=== PATIENT | female | born 1985 | race African-American/Black ===

== ENCOUNTER 2017-09-06 14:54 | Emergency (ER) | payer OTHER ==
[~2017-09-06] VITALS: Ht 157.5 cm; Wt 61.1 kg
[~2017-09-06 14:54] MED LIST: ACYCLOVIR400 MG PO; AUGMENTIN875 MG PO; NEURONTIN300 MG PO; PERCOCET 5/31 TABLET PO
[2017-09-06 16:22] LABS: HEMATOCRIT 39.4 % (36.0-46.0); MCH 30.7 PG (29.0-34.0); MCV 90.2 FL (83-99); MEAN PLAT.VOLUME 10.3 uM^3 (9.5-12.4); PLATELET COUNT 273 K/uL (156-360); RBC DIS.WIDTH-CV 13.4 % (11.8-14.6); RBC DIS.WIDTH-SD 44.2 % (39-53); RED BLOOD COUNT 4.37 M/uL (3.80-5.20); WHITE BLOOD COUNT 10.3 K/uL (4.1-10.2)
[2017-09-06 16:30] LABS: CHLORIDE 111 mEq/L (99-109); POTASSIUM 4.6 mEq/L (3.7-5.4); SODIUM 140 mEq/L (136-147)
[2017-09-06 16:32] LABS: GLUCOSE 91 mg/dL (70-99)
[2017-09-06 16:33] LABS: ANION GAP 11 MEQ/L (2-14)
[2017-09-06 16:34] LABS: TOTAL BILIRUBIN 0.2 mg/dL (0.0-1.0)
[2017-09-06 16:35] LABS: ALKALINE PHOSPHATASE 62 IU/L (3-129)
[2017-09-06 16:36] LABS: GFR ESTIMATE (CALCULATED) > 59 mL/min/
[2017-09-06 16:37] LABS: UREA NITROGEN (BUN) 14 mg/dL (9-23)
[2017-09-06 16:44] LABS: QUANTITATIVE HCG < 4.0 MIU/ML
[2017-09-06 16:54] LABS: ADD MIUA? NO; BILIRUBIN NEGATIVE; BLOOD NEGATIVE; COLOR YELLOW ((YELLOW)); GLUCOSE (STRIP) NEGATIVE; KETONES 5; LEUKOCYTES NEGATIVE; NITRITE NEGATIVE; PROTEIN (STRIP) NEGATIVE; UROBILINOGEN 0.2 MG/DL (0.2-1.0)
[2017-09-06] MEDS ORDERED: NAPROSYN500 MG PO (20:01)
[2017-09-06] MEDS ORDERED: NORCO 5/3251 TABLET PO (20:01)
[2017-09-06 20:34] VITALS: BP 122/82
[2017-09-08 11:54] LABS: CHLAMYDIA TRACHOMATIS NEGATIVE; NEISSERIA GONORRHOEAE NEGATIVE
== END 2017-09-06 20:35 | disposition home or self-care (01) ==
LOC: EME 14:54
PROVIDERS: Nurse Practitioner Family
DX: N83.201 Unspecified ovarian cyst, right side (principal); N94.10 Unspecified dyspareunia; R10.2 Pelvic and perineal pain; M79.7 Fibromyalgia; M35.2 Behcet's disease; Z88.5 Allergy status to narcotic agent
CPT/HCPCS: 76856; 80053; 81003; 84702; 85027; 87210; 87491; 87591; 99281; 99283

== ENCOUNTER 2018-06-03 15:09 | Emergency (ER) | payer OTHER ==
[~2018-06-03] VITALS: Ht 157.5 cm; Wt 69.7 kg
[~2018-06-03 15:09] MED LIST changes: +NAPROSYN500 MG PO; +NORCO 5/3251 TABLET PO
[2018-06-03 16:36] LABS: HEMATOCRIT 36.6 % (36.0-46.0); HEMOGLOBIN 12.3 G/DL (11.9-15.5); MCHC 33.6 G/DL (30.0-36.0); MCV 89.3 FL (83-99); PLATELET COUNT 203 K/uL (156-360); RBC DIS.WIDTH-CV 13.4 % (11.8-14.6); RBC DIS.WIDTH-SD 44.2 % (39-53)
[2018-06-03 16:48] LABS: PTT 27.9 SEC (25-37)
[2018-06-03 16:49] LABS: ALBUMIN 4.2 g/dL (3.2-4.8)
[2018-06-03 16:50] LABS: CHLORIDE 110 mEq/L (99-109); POTASSIUM 4.4 mEq/L (3.7-5.4); SODIUM 138 mEq/L (136-147)
[2018-06-03 16:52] LABS: GLUCOSE 87 mg/dL (70-99); TOTAL PROTEIN 6.9 g/dL (6.4-8.3)
[2018-06-03 16:54] LABS: TOTAL BILIRUBIN 0.3 mg/dL (0.0-1.0)
[2018-06-03 16:55] LABS: ALKALINE PHOSPHATASE 57 IU/L (3-129)
[2018-06-03 16:56] LABS: CREATININE 0.8 mg/dL (0.6-1.3); GFR ESTIMATE (CALCULATED) > 59 mL/min/
[2018-06-03 16:57] LABS: AST (GOT) 23 IU/L (2-34); UREA NITROGEN (BUN) 10 mg/dL (9-23)
[2018-06-03 16:59] LABS: ALT (GPT) 17 IU/L (3-49)
[2018-06-03 17:05] LABS: QUANTITATIVE HCG < 4.0 MIU/ML
[2018-06-03 17:09] LABS: MONOSPOT (MONONUCLEOSIS SEROL) NEGATIVE
[2018-06-03 17:34] LABS: C-REACTIVE PROTEIN 3.8 MG/L (0-10)
[2018-06-03 17:46] LABS: ERTH.SED.RATE 5 MM/HR (0-20)
[2018-06-03] MEDS ORDERED: PREDNISONE10 M1 PO (18:23)
[2018-06-03 18:32] VITALS: BP 124/72
== END 2018-06-03 18:35 | disposition home or self-care (01) ==
LOC: EME 15:09
PROVIDERS: Physician Assistant
DX: M35.2 Behcet's disease (principal); K58.9 Irritable bowel syndrome, unspecified; M79.7 Fibromyalgia; G50.0 Trigeminal neuralgia; Q79.6 Ehlers-Danlos syndromes; Z86.79 Personal history of other diseases of the circulatory system; Z88.5 Allergy status to narcotic agent
CPT/HCPCS: 80053; 84702; 85027; 85610; 85651; 85730; 86140; 86308; 99281; 99283; J1885